=== PATIENT | female | born 2000 | race African-American/Black ===

== ENCOUNTER 2019-06-28 03:03 | Emergency (ER) | payer OTHER ==
[~2019-06-28] VITALS: Ht 172.7 cm; Wt 59.0 kg
[2019-06-28 03:08] VITALS: BP 96/61
--- NOTE | 2019-06-28 03:48 | PHYS DOC ---
Past Medical History Past Medical History: No Pertinent History Past Surgical History: Other Additional Past Surgical Histo: [place] teeth Smoking Status: Never Smoker Alcohol Use: None Adult General Chief Complaint Chief Complaint: LACERATION/AVULSION HPI HPI 18-year-old female presents to the emergency Department after syncopal episode at home. Patient had gotten up to go use the bathroom, she became dizzy and fell. She is a laceration appreciated to her chin her brother states she was unconscious for about 30 seconds. Patient states recently started her period and has heavy menstrual cycles. She states sometimes she gets dizzy and lightheaded with change of position. States this is likely what happened tonight. She denies any nausea, vomiting, abdominal pain, visual changes. She does have a to have similar laceration appreciated to her chin. Bleeding is controlled. Nothing makes her symptoms better. She has no dizziness my examination at this time. Blood pressure 95 or 61, heart rate is in the 50s to 60s. Review of Systems Review of Systems Constitutional: Denies fever or chills [] Respiratory: Denies cough or shortness of breath [] Cardiovascular: No additional information not addressed in HPI [] GI: Denies abdominal pain, nausea, vomiting, bloody stools or diarrhea [] : Denies dysuria or hematuria [] Musculoskeletal: Denies back pain or joint pain [] Integument: Denies rash or skin lesions [] Neurologic: + headache, no focal weakness or sensory changes [] All other systems were reviewed and found to be within normal limits, except as documented in this note. Current Medications Current Medications Current Medications Medications (Trade) Dose Ordered Sig/[facility] Start Time Stop Time Status Last Admin Dose Admin Acetaminophen (Tylenol) 1,000 mg 1X ONCE 06/28/19 04:30 06/28/19 04:31 DC Diphtheria/ Tetanus/[facility]cell Pertussis (Boostrix) 0.5 ml ONCE ONCE 06/28/19 04:00 06/28/19 04:01 DC Lidocaine/ Epinephrine (LIDOCAINE 2%-EPI 1:100,000 multi-dose) 20 ml 1X ONCE 06/28/19 04:00 06/28/19 04:01 DC Sodium Chloride 1,000 ml @ 1,000 mls/hr 1X ONCE 06/28/19 04:00 06/28/19 04:59 DC 06/28/19 04:08 1,000 MLS/HR Allergies Allergies Allergies Coded Allergies Type Severity Reaction Last Updated Verified peanut Allergy Unknown Anaphylaxis 06/28/19 No Physical Exam Physical Exam Constitutional: Well developed, well nourished, no acute distress, non-toxic appearance. [] HENT: Normocephalic, atraumatic, bilateral external ears normal, oropharynx moist, no oral exudates, nose normal. 2.5cm laceration to chin[] Eyes: PERRLA, EOMI, conjunctiva normal, no discharge. [] Neck: Normal range of motion, no tenderness, supple, no stridor. [] Cardiovascular:Heart rate regular rhythm, no murmur [] Lungs & Thorax: Bilateral breath sounds clear to auscultation [] Abdomen: Bowel sounds normal, soft, no tenderness, no masses, no pulsatile masses. [] Skin: Warm, dry, no erythema, no rash. [] Extremities: No tenderness, no edema. [] Neurologic: Alert and oriented X 3, no focal deficits noted. [] Psychologic: Affect normal, judgement normal, mood normal. [] Current Patient Data Vital Signs Vital Signs Date Time Temp Pulse Resp B/P (MAP) Pulse Ox O2 Delivery O2 Flow Rate FiO2 06/28/19 03:08 97.4 61 12 96/61 (73) 100 Room Air 97.4 Lab Values Laboratory Tests Test 06/28/19 04:05 06/28/19 04:10 White Blood Count 6.8 x10^3/uL (4.0-11.0) Red Blood Count 4.07 x10^6/uL (3.50-5.40) Hemoglobin 11.7 g/dL (12.0-15.5) L Hematocrit 36.0 % (36.0-47.0) Mean Corpuscular Volume 88 fL (79-100) Mean Corpuscular Hemoglobin 29 pg (25-35) Mean Corpuscular Hemoglobin Concent 33 g/dL (31-37) Red Cell Distribution Width 14.1 % (11.5-14.5) Platelet Count 200 x10^3/uL (140-400) Neutrophils (%) (Auto) 64 % (31-73) Lymphocytes (%) (Auto) 26 % (24-48) Monocytes (%) (Auto) 8 % (0-9) Eosinophils (%) (Auto) 2 % (0-3) Basophils (%) (Auto) 0 % (0-3) Neutrophils # (Auto) 4.4 x10^3/uL (1.8-7.7) Lymphocytes # (Auto) 1.7 x10^3/uL (1.0-4.8) Monocytes # (Auto) 0.5 x10^3/uL (0.0-1.1) Eosinophils # (Auto) 0.1 x10^3/uL (0.0-0.7) Basophils # (Auto) 0.0 x10^3/uL (0.0-0.2) Sodium Level 140 mmol/L (136-145) Potassium Level 3.8 mmol/L (3.5-5.1) Chloride Level 106 mmol/L (98-107) Carbon Dioxide Level 24 mmol/L (21-32) Anion Gap 10 (6-14) Blood Urea Nitrogen 16 mg/dL (7-20) Creatinine 0.8 mg/dL (0.6-1.0) Estimated GFR (Cockcroft-Gault) 110.7 BUN/Creatinine Ratio 20 (6-20) Glucose Level 105 mg/dL (70-99) H Calcium Level 8.6 mg/dL (8.5-10.1) Total Bilirubin 0.4 mg/dL (0.2-1.0) Aspartate Amino Transferase (AST) 42 U/L (15-37) H Alanine Aminotransferase (ALT) 48 U/L (14-59) Alkaline Phosphatase 64 U/L (46-116) Total Protein 6.8 g/dL (6.4-8.2) Albumin 3.5 g/dL (3.4-5.0) Albumin/Globulin Ratio 1.1 (1.0-1.7) POC Urine HCG, Qualitative Hcg negative (Negative) Laboratory Tests 06/28/19 04:05 Laboratory Tests 06/28/19 04:05 EKG EKG [] Radiology/Procedures Radiology/Procedures [facility] [address] [place] [address] IMAGING REPORT Signed PATIENT: JENNIE MCKENZIE ACCOUNT: [id number] : 2000 LOCATION: ER AGE: 18 SEX: F EXAM STATUS: REG ER ORD. PHYSICIAN: MICHAEL AMIN MD REASON: syncope PROCEDURE: CT HEAD WO CONTRAST INDICATION: Syncope COMPARISON: None. TECHNIQUE: Axial CT images obtained through the head without intravenous contrast. One or more of the following individualized dose reduction techniques were utilized for this examination: 1. Automated exposure control; 2. Adjustment of the mA and/or kV according to patient size; 3. Use of iterative reconstruction technique. FINDINGS: No intracranial hemorrhage. No midline shift. Basal cisterns patent. Ventricles and sulci are unremarkable. No acute osseous abnormality. Orbits and paranasal sinuses unremarkable. IMPRESSION: * No acute intracranial hemorrhage. * There is some suspected scattered regions of low density within the white matter. Nonspecific in nature but can be sequela of small vessel ischemic disease, migraine or sequela of demyelination are some possible causes. Electronically signed by: Ramin Edwards MD (06/28/2019 5:07 AM) [id number] DICTATED and SIGNED BY: RAMIN EDWARDS MD DATE: 06/28/19 0507 [] Course & Med Decision Making Course & Med Decision Making Pertinent Labs and Imaging studies reviewed. (See chart for details) []18-year-old female presents to the emergency Department after syncopal episode at home. Patient had gotten up to go use the bathroom, she became dizzy and fell. She is a laceration appreciated to her chin her brother states she was unconscious for about 30 seconds. Patient states recently started her period and has heavy menstrual cycles. She states sometimes she gets dizzy and lightheaded with change of position. States this is likely what happened tonight. She denies any nausea, vomiting, abdominal pain, visual changes. She does have a to have similar laceration appreciated to her chin. Bleeding is controlled. Nothing makes her symptoms better. She has no dizziness my examination at this time. Blood pressure 95 or 61, heart rate is in the 50s to 60s. CT as described without acute hemorrhage Labs reviewed Laceration Repair by me: Anesthesia: 1% lidocaine/epi locally Location: chin Tendon/Joint/Nerves: No injury Foreign body: None detected after copious irrigation and exploration Technique: 6, 5.0 prolene Simple Interrupted Sutures Complexity: 2 subq sutures placed (2, 4.0 vicryl) Post Closure Length: 2.5 cm Patient's bleeding was easily controlled in the department and there is no indication of anemia. No evidence of compartment syndrome, neurologic injury, vascular injury, open joint, tendon laceration, or foreign body. Patient is appropriate for outpatient follow up. Dragon Disclaimer Dragon Disclaimer This electronic medical record was generated, in whole or in part, using a voice recognition dictation system. Departure Departure Impression: Primary Impression: Syncope Additional Impression: Laceration of chin without complication Disposition: HOME, SELF-CARE Condition: STABLE Referrals: NO PCP (PCP) Patient Instructions: Facial Laceration, [id number], Laceration Care, Adult, [id number], Syncope, [id number] Additional Instructions: Recommend tylenol/motrin as needed for pain Suture removal of 6 sutures in 5 - 7 days Return to the ER with concerns for infection CT head without acute hemorrhage/bleeding Hgb 11.7 - stable Recommend follow up with PCP as needed Return to ER or PCP for suture removal Problem Qualifiers Primary Impression: Syncope Syncope type: vasovagal syncope Qualified Codes: R55 - Syncope and collapse Additional Impression: Laceration of chin without complication Encounter type: initial encounter Qualified Codes: S01.81XA - Laceration without foreign body of other part of head, initial encounter MICHAEL AMIN MD Jun 28, 2019 03:48
[2019-06-28] MEDS ORDERED: IV NORMAL SALINE 1000ML BAG 1,000 ML IV ONE (04:00)
[2019-06-28] MEDS ORDERED: DIPHTH,PERTUSS(ACELL),TET TOX 0.5 ML DISP.SYRIN. VAX IM ONE (04:00)
[2019-06-28] MEDS ORDERED: LIDOCAINE 2%/EPI 1:100,000 20 ML VIAL. IJ ONE (04:00)
[2019-06-28 04:11] LABS: BASO % 0 % (0-3); EOS # 0.1 x10^3/uL (0.0-0.7); EOS % 2 % (0-3); HEMOGLOBIN 11.7 g/dL (12.0-15.5); LYMPH # 1.7 x10^3/uL (1.0-4.8); LYMPH % 26 % (24-48); MEAN CORPUSCULAR HEMOGLOBIN 29 pg (25-35); MEAN CORPUSCULAR HGB CONC 33 g/dL (31-37); MEAN CORPUSCULAR VOLUME 88 fL (79-100); MONO # 0.5 x10^3/uL (0.0-1.1); MONO % 8 % (0-9); NEUT # 4.4 x10^3/uL (1.8-7.7); NEUT % 64 % (31-73); PLATELET COUNT 200 x10^3/uL (140-400); RED BLOOD COUNT 4.07 x10^6/uL (3.50-5.40); RED CELL DISTRIBUTION WIDTH 14.1 % (11.5-14.5); WHITE BLOOD COUNT 6.8 x10^3/uL (4.0-11.0)
[2019-06-28 04:19] LABS: CALCIUM 8.6 mg/dL (8.5-10.1); CREATININE 0.8 mg/dL (0.6-1.0); GFR 110.7; POTASSIUM 3.8 mmol/L (3.5-5.1)
[2019-06-28 04:25] LABS: ALBUMIN 3.5 g/dL (3.4-5.0); ALBUMIN/GLOBULIN RATIO 1.1 (1.0-1.7); TOTAL BILIRUBIN 0.4 mg/dL (0.2-1.0); TOTAL PROTEIN 6.8 g/dL (6.4-8.2)
[2019-06-28] MEDS ORDERED: ACETAMINOPHEN 500 MG TABLET PO ONE (04:30)
--- NOTE | 2019-06-28 05:10 | RAD ---
INDICATION: Syncope COMPARISON: None. TECHNIQUE: Axial CT images obtained through the head without intravenous contrast. One or more of the following individualized dose reduction techniques were utilized for this examination: 1. Automated exposure control; 2. Adjustment of the mA and/or kV according to patient size; 3. Use of iterative reconstruction technique. FINDINGS: No intracranial hemorrhage. No midline shift. Basal cisterns patent. Ventricles and sulci are unremarkable. No acute osseous abnormality. Orbits and paranasal sinuses unremarkable. IMPRESSION: * No acute intracranial hemorrhage. * There is some suspected scattered regions of low density within the white matter. Nonspecific in nature but can be sequela of small vessel ischemic disease, migraine or sequela of demyelination are some possible causes. Electronically signed by: Ramin Ray MD (06/28/2019 5:07 AM) [id number]
[2019-06-28] MEDS ORDERED: NEOMY/BACITR/POLYMYXIN OINT PACKET. TP ONE (05:31)
== END 2019-06-28 05:45 | disposition home or self-care (01) ==
LOC: ER 03:03
DX: S01.81XA Laceration without foreign body of other part of head, initial encounter (principal); R55 Syncope and collapse; Z91.010 Allergy to peanuts; W18.39XA Other fall on same level, initial encounter; Y93.89 Activity, other specified; Y92.89 Other specified places as the place of occurrence of the external cause; Y99.8 Other external cause status
CPT/HCPCS: 12011; 36415; 70450; 80053; 81025; 85025; 90471; 90715; 96360; 99284; J7030

== ENCOUNTER 2019-07-04 11:08 | Emergency (ER) | payer OTHER ==
[~2019-07-04] VITALS: Ht 172.7 cm; Wt 59.0 kg
[2019-07-04 11:33] VITALS: BP 115/65
--- NOTE | 2019-07-04 12:04 | PHYS DOC ---
Past Medical History Past Medical History: No Pertinent History Past Surgical History: Other Additional Past Surgical Histo: [place] teeth Smoking Status: Never Smoker Alcohol Use: None Adult General Chief Complaint Chief Complaint: WOUND RECHECK/SUTURE REMOVAL HPI HPI Patient is a 18 year old female who presents to the ED today for suture removal, sutures have been in for 6 days, no issues with the wound healing Review of Systems Review of Systems Constitutional: Denies fever or chills [] Musculoskeletal: Denies back pain or joint pain [] Integument: Visit for suture removal Neurologic: Denies headache, focal weakness or sensory changes [] All other systems were reviewed and found to be within normal limits, except as documented in this note. Allergies Allergies Allergies Coded Allergies Type Severity Reaction Last Updated Verified peanut Allergy Unknown Anaphylaxis 06/28/19 No Physical Exam Physical Exam Constitutional: Well developed, well nourished, no acute distress, non-toxic appearance. [] Skin: Warm, dry, mid chin with a well approximated laceration site with 6 interrupted sutures, no signs of infection. Back: No tenderness, no CVA tenderness. [] Extremities: No tenderness, no cyanosis, no clubbing, ROM intact, no edema. [] Neurologic: Alert and oriented X 3, normal motor function, normal sensory function, no focal deficits noted. [] Psychologic: Affect normal, judgement normal, mood normal. [] Current Patient Data Vital Signs Vital Signs Date Time Temp Pulse Resp B/P (MAP) Pulse Ox O2 Delivery O2 Flow Rate FiO2 07/04/19 11:33 96/61 (73) EKG EKG [] Radiology/Procedures Radiology/Procedures [] Course & Med Decision Making Course & Med Decision Making Pertinent Labs and Imaging studies reviewed. (See chart for details) This is a 18-year-old female patient presenting to the ED today for suture removal, sutures were removed from me from the chin by ma wound care instructions and return precautions provided. Dragon Disclaimer Dragon Disclaimer This electronic medical record was generated, in whole or in part, using a voice recognition dictation system. Departure Departure Impression: Primary Impression: Visit for suture removal Disposition: 01 HOME, SELF-CARE Condition: STABLE Referrals: [facility] (PCP) Follow-up with your doctor as needed Patient Instructions: Suture Removal-Brief Additional Instructions: You had stitches removed from the chin. Keep the area clean and dry. Consider using [id number] scar removal agents to minimize scar MUTDISHA DAVID APRN Jul 04, 2019 12:04
== END 2019-07-04 12:16 | disposition home or self-care (01) ==
LOC: ER 11:08
DX: S01.81XD Laceration without foreign body of other part of head, subsequent encounter (principal); Z91.010 Allergy to peanuts; X58.XXXD Exposure to other specified factors, subsequent encounter
CPT/HCPCS: 99281